=== PATIENT | female | born 1965 | race Caucasian/White ===

== ENCOUNTER 2017-07-12 19:30 | Emergency (ER) | payer OTHER ==
[2017-07-13 00:41] LABS: ADD MAN DIFF? NO
[2017-07-13] MEDS: LORAZEPAM 2 MG INJ IV (00:44)
[2017-07-13 00:45] LABS: WHITE BLOOD COUNT 10.6 10^3/ul (4.8-10.8)
[2017-07-13 00:45] LABS: BASOPHILS % 0.2 % (0.0-2.0); EOSINOPHILS % 0.1 % (0.0-7.0); HEMATOCRIT 34.1 % (37.0-47.0); HEMOGLOBIN 11.2 g/dl (12.0-16.0); LYMPHOCYTES # 1.6 10^3/ul (0.8-2.9); LYMPHOCYTES % 14.9 % (15.0-51.0); MEAN CORPUSCULAR HEMOGLOBIN 27.1 pg (29.0-33.0); MEAN CORPUSCULAR HGB CONC 32.8 g/dl (32.0-37.0); MEAN CORPUSCULAR VOLUME 82.6 fl (82.0-101.0); MEAN PLATELET VOLUME 10.3 fl (7.4-10.4); MONOCYTE # 0.3 10^3/ul (0.3-0.9); MONOCYTES % 2.4 % (0.0-11.0); NEUTROPHIL # 8.6 10^3/ul (1.6-7.5); NEUTROPHILS % 81.2 % (39.0-77.0); PLATELET COUNT 353 10^3/UL (140-415); RED BLOOD COUNT 4.13 10^6/ul (4.20-5.40); RED CELL DISTRIBUTION WIDTH 14.6 % (11.5-14.5)
[2017-07-13 01:15] LABS: ALANINE AMINOTRANSFERASE 25 IU/L (13-69); ALBUMIN 4.6 g/dl (3.3-4.9); ALBUMIN/GLOBULIN RATIO 1.17; ALKALINE PHOSPHATASE 133 IU/L (42-121); ANION GAP 16 (8-16); ASPARTATE AMINO TRANSFERASE 29 IU/L (15-46); BLOOD UREA NITROGEN 15 mg/dl (7-20); CALCIUM 10.1 mg/dl (8.4-10.2); CARBON DIOXIDE 23 mmol/L (21-31); CHLORIDE 105 mmol/L (97-110); CREATINE KINASE 115 IU/L (23-200); CREATININE 0.57 mg/dl (0.44-1.00); GLUCOSE 191 mg/dl (70-220); POTASSIUM 4.1 mmol/L (3.5-5.1); SODIUM 140 mmol/L (135-144); TOTAL PROTEIN 8.5 g/dl (6.1-8.1)
[2017-07-13 02:37] LABS: B-TYPE NATRIURETIC PEPTIDE 66 PG/ML (0-125); CK INDEX 0.8; CK-MB 0.87 ng/ml (0.0-2.4)
[2017-07-13 02:46] LABS: TROPONIN-I < 0.012 ng/ml (0.00-0.12)
== END 2017-07-13 03:28 | disposition home or self-care (01) ==
LOC: E/R 19:30
DX: R07.9 Chest pain, unspecified (principal); J45.909 Unspecified asthma, uncomplicated; E11.9 Type 2 diabetes mellitus without complications; R06.02 Shortness of breath; Z79.82 Long term (current) use of aspirin; Z79.84 Long term (current) use of oral hypoglycemic drugs
CPT/HCPCS: 36415; 71045; 80053; 82550; 82553; 82962; 83880; 84484; 85025; 93005; 96374; 99285-25

== ENCOUNTER 2017-08-24 01:07 | Inpatient (IN) | payer OTHER ==
[2017-08-24 02:27] LABS: ADD MAN DIFF? NO
[2017-08-24] MEDS: hydrALAzine 20 MG INJ IV (02:30)
[2017-08-24 02:31] LABS: BASOPHILS % 0.4 % (0.0-2.0); EOSINOPHILS # 0.3 10^3/ul (0.0-0.5); EOSINOPHILS % 3.6 % (0.0-7.0); HEMATOCRIT 38.7 % (37.0-47.0); HEMOGLOBIN 12.3 g/dl (12.0-16.0); LYMPHOCYTES % 33.5 % (15.0-51.0); MEAN CORPUSCULAR HGB CONC 31.8 g/dl (32.0-37.0); MEAN CORPUSCULAR VOLUME 84.9 fl (82.0-101.0); MEAN PLATELET VOLUME 10.2 fl (7.4-10.4); MONOCYTE # 0.5 10^3/ul (0.3-0.9); NEUTROPHIL # 5.1 10^3/ul (1.6-7.5); NEUTROPHILS % 56.2 % (39.0-77.0); PLATELET COUNT 352 10^3/UL (140-415); RED BLOOD COUNT 4.56 10^6/ul (4.20-5.40); RED CELL DISTRIBUTION WIDTH 15.1 % (11.5-14.5)
[2017-08-24 02:53] LABS: ALANINE AMINOTRANSFERASE 25 IU/L (13-69); ALBUMIN 4.7 g/dl (3.3-4.9); ALKALINE PHOSPHATASE 144 IU/L (42-121); ANION GAP 16 (8-16); ASPARTATE AMINO TRANSFERASE 22 IU/L (15-46); BLOOD UREA NITROGEN 18 mg/dl (7-20); CALCIUM 9.8 mg/dl (8.4-10.2); CARBON DIOXIDE 29 mmol/L (21-31); CHLORIDE 102 mmol/L (97-110); CREATININE 0.66 mg/dl (0.44-1.00); GLUCOSE 85 mg/dl (70-220); POTASSIUM 3.8 mmol/L (3.5-5.1); SODIUM 143 mmol/L (135-144); TOTAL PROTEIN 8.3 g/dl (6.1-8.1)
[2017-08-24 03:05] LABS: B-TYPE NATRIURETIC PEPTIDE 26 PG/ML (0-125)
[2017-08-24 03:09] LABS: TROPONIN-I < 0.012 ng/ml (0.00-0.12)
[2017-08-24 07:35] LABS: CREATINE KINASE 83 IU/L (23-200)
[2017-08-24 07:47] LABS: CK INDEX 0.8; TROPONIN-I < 0.012 ng/ml (0.00-0.12)
[2017-08-24] MEDS ORDERED: ALBUTEROL HFA 8 GM INHALER INH (08:30)
[2017-08-24] MEDS ORDERED: NITROGLYCERIN (SL) 0.4 MG TAB SL (08:30)
[2017-08-24] MEDS ORDERED: GLUCOSE GEL 15 GRAM TUBE BUCCAL (08:30)
[2017-08-24] MEDS ORDERED: GLUCOSE GEL 15 GRAM TUBE PO ×2 (08:30)
[2017-08-24] MEDS ORDERED: GLUCAGON 1 MG INJ IM (08:30)
[2017-08-24] MEDS ORDERED: DEXTROSE 50% 50 ML SYRINGE IV ×2 (08:30)
[2017-08-24] MEDS: ASPIRIN 325 MG TAB PO (09:58)
[2017-08-24] MEDS: METOPROLOL 25 MG TAB PO ×2 (09:59→20:55)
[2017-08-24] MEDS: RANITIDINE 150 MG TAB PO ×2 (09:59→20:55)
[2017-08-24] MEDS: BENAZEPRIL 40 MG TAB PO (09:59)
[2017-08-24] MEDS: ACETAMINOPHEN 325 MG TAB PO (10:41)
[2017-08-24] MEDS: INSULIN ASPART [NOVOLOG] 3 ML PEN SC ×3 (11:45→20:58)
[2017-08-24 12:58] LABS: CREATINE KINASE 73 IU/L (23-200)
[2017-08-24 13:11] LABS: CK INDEX 0.7; CK-MB 0.49 ng/ml (0.0-2.4); TROPONIN-I < 0.012 ng/ml (0.00-0.12)
[2017-08-24] MEDS ORDERED: hydrALAzine 20 MG INJ IV (14:30)
[2017-08-24] MEDS: metFORMIN 500 MG TAB PO (17:06)
[2017-08-24 19:19] LABS: TROPONIN-I < 0.012 ng/ml (0.00-0.12)
[2017-08-25] MEDS: ACCU-CHEK XX (02:22)
[2017-08-25 05:16] LABS: ADD MAN DIFF? NO
[2017-08-25 05:20] LABS: WHITE BLOOD COUNT 7.6 10^3/ul (4.8-10.8)
[2017-08-25 05:20] LABS: BASOPHILS % 0.5 % (0.0-2.0); EOSINOPHILS # 0.3 10^3/ul (0.0-0.5); EOSINOPHILS % 3.7 % (0.0-7.0); HEMATOCRIT 37.7 % (37.0-47.0); HEMOGLOBIN 11.9 g/dl (12.0-16.0); LYMPHOCYTES # 2.7 10^3/ul (0.8-2.9); LYMPHOCYTES % 35.6 % (15.0-51.0); MEAN CORPUSCULAR HEMOGLOBIN 26.9 pg (29.0-33.0); MEAN CORPUSCULAR HGB CONC 31.6 g/dl (32.0-37.0); MEAN CORPUSCULAR VOLUME 85.3 fl (82.0-101.0); MEAN PLATELET VOLUME 10.1 fl (7.4-10.4); MONOCYTE # 0.5 10^3/ul (0.3-0.9); MONOCYTES % 6.2 % (0.0-11.0); NEUTROPHIL # 4.1 10^3/ul (1.6-7.5); NEUTROPHILS % 53.6 % (39.0-77.0); PLATELET COUNT 365 10^3/UL (140-415); RED BLOOD COUNT 4.42 10^6/ul (4.20-5.40); RED CELL DISTRIBUTION WIDTH 15.4 % (11.5-14.5)
[2017-08-25 05:46] LABS: ANION GAP 14 (8-16); BLOOD UREA NITROGEN 19 mg/dl (7-20); CALCIUM 9.3 mg/dl (8.4-10.2); CARBON DIOXIDE 28 mmol/L (21-31); CHLORIDE 104 mmol/L (97-110); CREATININE 0.77 mg/dl (0.44-1.00); GLUCOSE 111 mg/dl (70-220); POTASSIUM 4.4 mmol/L (3.5-5.1); SODIUM 142 mmol/L (135-144)
[2017-08-25 06:01] LABS: CHOL/HDL RATIO 6.5 RATIO; HDL CHOLESTEROL 36 mg/dl (37-92); LDL CHOLESTEROL,CALCULATED 166 mg/dl; TRIGLYCERIDES 160 mg/dl (0-149)
[2017-08-25 06:01] LABS: CHOLESTEROL 234 mg/dl (100-200)
[2017-08-25] MEDS: INSULIN ASPART [NOVOLOG] 3 ML PEN SC ×3 (07:35→17:14)
[2017-08-25] MEDS: metFORMIN 500 MG TAB PO ×2 (07:38→17:38)
[2017-08-25] MEDS: METOPROLOL 25 MG TAB PO (08:29)
[2017-08-25] MEDS: BENAZEPRIL 40 MG TAB PO (08:29)
[2017-08-25] MEDS: RANITIDINE 150 MG TAB PO (08:29)
[2017-08-25] MEDS: ASPIRIN 325 MG TAB PO (08:29)
[2017-08-25] MEDS: ACETAMINOPHEN 325 MG TAB PO (11:14)
== END 2017-08-25 18:40 | disposition home or self-care (01) | DRG 313 ==
LOC: E/R 01:07 → MS3 05:48
DX: R07.9 Chest pain, unspecified (principal); Z68.41 Body mass index [BMI] 40.0-44.9, adult; I10 Essential (primary) hypertension; E11.9 Type 2 diabetes mellitus without complications; E78.5 Hyperlipidemia, unspecified; E66.01 Morbid (severe) obesity due to excess calories
CPT/HCPCS: 36415; 71045; 80048; 80053; 80061; 82550; 82553; 82962; 83880; 84443; 84484; 85025; 93005; 93306; 96374; 99285-25

== ENCOUNTER 2017-08-27 00:13 | Emergency (ER) | payer SELFPAY, OTHER | END 2017-08-27 06:30 | disposition left against medical advice (07) | LOC: E/R 00:13 | DX: Z53.21 Procedure and treatment not carried out due to patient leaving prior to being seen by health care provider (principal) ==

== ENCOUNTER 2018-03-28 12:28 | Inpatient (IN) | payer OTHER ==
[2018-03-28] MEDS: SOD CHLORIDE 0.9% 1,000 ML IV (16:25)
[2018-03-28] MEDS: VANCOMYCIN 1 GM (PMX) 250 ML IVPB (16:26)
[2018-03-28 16:39] LABS: ADD MAN DIFF? NO
[2018-03-28 16:40] LABS: WHITE BLOOD COUNT 8.7 10^3/ul (4.8-10.8)
[2018-03-28 16:40] LABS: BASOPHIL # 0.1 10^3/ul (0.0-0.1); BASOPHILS % 0.6 % (0.0-2.0); EOSINOPHILS # 0.3 10^3/ul (0.0-0.5); EOSINOPHILS % 3.9 % (0.0-7.0); HEMATOCRIT 35.3 % (37.0-47.0); HEMOGLOBIN 10.8 g/dl (12.0-16.0); LYMPHOCYTES # 1.9 10^3/ul (0.8-2.9); LYMPHOCYTES % 21.9 % (15.0-51.0); MEAN CORPUSCULAR HEMOGLOBIN 25.7 pg (29.0-33.0); MEAN CORPUSCULAR HGB CONC 30.6 g/dl (32.0-37.0); MEAN CORPUSCULAR VOLUME 83.8 fl (82.0-101.0); MEAN PLATELET VOLUME 9.9 fl (7.4-10.4); MONOCYTE # 0.4 10^3/ul (0.3-0.9); MONOCYTES % 4.8 % (0.0-11.0); NEUTROPHILS % 68.6 % (39.0-77.0); PLATELET COUNT 399 10^3/UL (140-415); RED BLOOD COUNT 4.21 10^6/ul (4.20-5.40); RED CELL DISTRIBUTION WIDTH 14.7 % (11.5-14.5)
[2018-03-28 16:52] LABS: ADD UMIC NO; UR ASCORBIC ACID NEGATIVE (NEGATIVE); UR BILIRUBIN (Dip) NEGATIVE (NEGATIVE); UR BLOOD (Dip) NEGATIVE (NEGATIVE); UR CLARITY CLEAR (CLEAR); UR COLOR YELLOW (YELLOW); UR GLUCOSE (Dip) NEGATIVE (NEGATIVE); UR KETONES (Dip) NEGATIVE (NEGATIVE); UR LEUKOCYTE ESTERASE (Dip) NEGATIVE Leu/ul (NEGATIVE); UR NITRITE (Dip) NEGATIVE (NEGATIVE); UR SPECIFIC GRAVITY (Dip) 1.016 (1.003-1.030); UR TOTAL PROTEIN (Dip) NEGATIVE (NEGATIVE); UR UROBILINOGEN (Dip) NEGATIVE (NEGATIVE)
[2018-03-28 16:59] LABS: ALANINE AMINOTRANSFERASE 10 IU/L (13-69); ALBUMIN 4.2 g/dl (3.3-4.9); ALBUMIN/GLOBULIN RATIO 1.05; ALKALINE PHOSPHATASE 117 IU/L (42-121); ANION GAP 9 (5-13); ASPARTATE AMINO TRANSFERASE 20 IU/L (15-46); BILIRUBIN,INDIRECT 0.1 mg/dl (0-1.1); BILIRUBIN,TOTAL 0.1 mg/dl (0.2-1.3); BLOOD UREA NITROGEN 17 mg/dl (7-20); CALCIUM 9.4 mg/dl (8.4-10.2); CARBON DIOXIDE 28 mmol/L (21-31); CHLORIDE 103 mmol/L (97-110); Estimated GFR > 60 mL/min (>60); GLUCOSE 162 mg/dl (70-220); POTASSIUM 3.8 mmol/L (3.5-5.1); SODIUM 140 mmol/L (135-144); TOTAL PROTEIN 8.2 g/dl (6.1-8.1)
[2018-03-28] MEDS ORDERED: ACETAMINOPHEN 325 MG TAB PO (19:00)
[2018-03-28] MEDS ORDERED: ONDANSETRON 4 MG INJ IV (19:00)
[2018-03-28] MEDS ORDERED: ALBUTEROL HFA 8 GM INHALER INH (19:30)
[2018-03-28] MEDS ORDERED: NACL 0.9% 3 ML SYG IV (19:30)
[2018-03-28] MEDS ORDERED: VANCOMYCIN IV PER PHARMACY XX (20:00)
[2018-03-28] MEDS: INSULIN ASPART [NOVOLOG] 3 ML PEN SC (21:00)
[2018-03-28] MEDS: RANITIDINE 150 MG TAB PO (22:16)
[2018-03-28] MEDS: VANCOMYCIN 1 GM 250 ML IVPB (22:16)
[2018-03-28] MEDS: ACETAMINOPHEN 325 MG TAB PO (22:25)
[2018-03-29 06:06] LABS: ADD MAN DIFF? NO
[2018-03-29 06:10] LABS: WHITE BLOOD COUNT 6.6 10^3/ul (4.8-10.8)
[2018-03-29 06:10] LABS: BASOPHIL # 0.1 10^3/ul (0.0-0.1); BASOPHILS % 0.8 % (0.0-2.0); EOSINOPHILS # 0.4 10^3/ul (0.0-0.5); EOSINOPHILS % 5.3 % (0.0-7.0); HEMATOCRIT 32.3 % (37.0-47.0); HEMOGLOBIN 10.1 g/dl (12.0-16.0); LYMPHOCYTES # 1.8 10^3/ul (0.8-2.9); LYMPHOCYTES % 27.2 % (15.0-51.0); MEAN CORPUSCULAR HEMOGLOBIN 26.3 pg (29.0-33.0); MEAN CORPUSCULAR HGB CONC 31.3 g/dl (32.0-37.0); MEAN CORPUSCULAR VOLUME 84.1 fl (82.0-101.0); MONOCYTE # 0.5 10^3/ul (0.3-0.9); MONOCYTES % 7.7 % (0.0-11.0); NEUTROPHIL # 3.9 10^3/ul (1.6-7.5); NEUTROPHILS % 58.8 % (39.0-77.0); PLATELET COUNT 348 10^3/UL (140-415); RED BLOOD COUNT 3.84 10^6/ul (4.20-5.40); RED CELL DISTRIBUTION WIDTH 14.6 % (11.5-14.5)
[2018-03-29 06:47] LABS: ANION GAP 6 (5-13); BLOOD UREA NITROGEN 13 mg/dl (7-20); CALCIUM 8.8 mg/dl (8.4-10.2); CARBON DIOXIDE 29 mmol/L (21-31); CHLORIDE 107 mmol/L (97-110); Estimated GFR > 60 mL/min (>60); GLUCOSE 111 mg/dl (70-220); MAGNESIUM 2.1 mg/dl (1.7-2.5); POTASSIUM 4.2 mmol/L (3.5-5.1); SODIUM 142 mmol/L (135-144)
[2018-03-29] MEDS ORDERED: GLUCAGON 1 MG INJ IM (07:30)
[2018-03-29] MEDS ORDERED: DEXTROSE 50% 50 ML SYRINGE IV ×2 (07:30)
[2018-03-29] MEDS ORDERED: GLUCOSE GEL 15 GRAM TUBE PO (07:30)
[2018-03-29] MEDS: INSULIN ASPART [NOVOLOG] 3 ML PEN SC ×4 (08:46→21:00)
[2018-03-29] MEDS: ENOXAPARIN 40 MG/0.4 ML SYG SC (08:46)
[2018-03-29] MEDS: BENAZEPRIL 40 MG TAB PO (08:47)
[2018-03-29] MEDS: ASPIRIN 81 MG TAB PO (08:49)
[2018-03-29] MEDS: RANITIDINE 150 MG TAB PO ×2 (08:50→21:26)
[2018-03-29] MEDS: VANCOMYCIN 1 GM 250 ML IVPB ×2 (10:44→21:28)
[2018-03-29] MEDS: ACETAMINOPHEN 325 MG TAB PO ×2 (13:14→22:10)
[2018-03-29] MEDS: LEVOFLOXACIN 500MG/D5W (PMX) 100 ML IVPB (14:13)
[2018-03-29] MEDS: metFORMIN 500 MG TAB PO (17:39)
[2018-03-29] MEDS: glipiZIDE 10 MG TAB PO (17:39)
[2018-03-29] MEDS: GLUCOSE GEL 15 GRAM TUBE PO (21:16)
[2018-03-29] MEDS: GABAPENTIN 300 MG CAP PO (21:24)
[2018-03-30 06:13] LABS: ADD MAN DIFF? NO
[2018-03-30 06:18] LABS: BASOPHIL # 0.1 10^3/ul (0.0-0.1); BASOPHILS % 0.9 % (0.0-2.0); EOSINOPHILS # 0.3 10^3/ul (0.0-0.5); HEMATOCRIT 33.4 % (37.0-47.0); HEMOGLOBIN 10.4 g/dl (12.0-16.0); LYMPHOCYTES # 2.2 10^3/ul (0.8-2.9); LYMPHOCYTES % 34.5 % (15.0-51.0); MEAN CORPUSCULAR HEMOGLOBIN 26.3 pg (29.0-33.0); MEAN CORPUSCULAR HGB CONC 31.1 g/dl (32.0-37.0); MEAN CORPUSCULAR VOLUME 84.3 fl (82.0-101.0); MEAN PLATELET VOLUME 10.2 fl (7.4-10.4); MONOCYTE # 0.5 10^3/ul (0.3-0.9); MONOCYTES % 8.5 % (0.0-11.0); NEUTROPHIL # 3.2 10^3/ul (1.6-7.5); NEUTROPHILS % 50.8 % (39.0-77.0); PLATELET COUNT 372 10^3/UL (140-415); RED BLOOD COUNT 3.96 10^6/ul (4.20-5.40); RED CELL DISTRIBUTION WIDTH 14.6 % (11.5-14.5)
[2018-03-30 06:18] LABS: WHITE BLOOD COUNT 6.4 10^3/ul (4.8-10.8)
[2018-03-30 06:44] LABS: ANION GAP 7 (5-13); BLOOD UREA NITROGEN 12 mg/dl (7-20); CALCIUM 9.1 mg/dl (8.4-10.2); CARBON DIOXIDE 30 mmol/L (21-31); CHLORIDE 106 mmol/L (97-110); CREATININE 0.56 mg/dl (0.44-1.00); Estimated GFR > 60 mL/min (>60); GLUCOSE 95 mg/dl (70-220); POTASSIUM 3.9 mmol/L (3.5-5.1); SODIUM 143 mmol/L (135-144)
[2018-03-30] MEDS: INSULIN ASPART [NOVOLOG] 3 ML PEN SC ×4 (08:00→21:00)
[2018-03-30] MEDS: metFORMIN 500 MG TAB PO ×2 (08:02→17:58)
[2018-03-30] MEDS: glipiZIDE 10 MG TAB PO ×2 (08:02→17:58)
[2018-03-30] MEDS: ACETAMINOPHEN 325 MG TAB PO ×2 (08:08→22:46)
[2018-03-30] MEDS: ASPIRIN 81 MG TAB PO (08:51)
[2018-03-30] MEDS: GABAPENTIN 300 MG CAP PO ×3 (08:51→21:08)
[2018-03-30] MEDS: BENAZEPRIL 40 MG TAB PO (08:51)
[2018-03-30] MEDS: RANITIDINE 150 MG TAB PO ×2 (08:52→21:16)
[2018-03-30] MEDS: LOSARTAN 50 MG TAB PO (08:53)
[2018-03-30] MEDS: ENOXAPARIN 40 MG/0.4 ML SYG SC (08:54)
[2018-03-30 10:19] LABS: VANCOMYCIN,TROUGH 8.6 ug/ml (10.0-20.0)
[2018-03-30] MEDS: VANCOMYCIN 1 GM 250 ML IVPB (11:09)
[2018-03-30] MEDS: LEVOFLOXACIN 500MG/D5W (PMX) 100 ML IVPB (15:11)
[2018-03-30] MEDS: GLUCOSE GEL 15 GRAM TUBE BUCCAL (21:15)
[2018-03-30] MEDS: VANCOMYCIN 1.25 GM in SOD CHLORIDE 0.9% 250 ML IVPB (22:25)
[2018-03-31 06:09] LABS: ANION GAP 8 (5-13); BLOOD UREA NITROGEN 17 mg/dl (7-20); CALCIUM 9.3 mg/dl (8.4-10.2); CARBON DIOXIDE 30 mmol/L (21-31); CHLORIDE 104 mmol/L (97-110); CREATININE 0.65 mg/dl (0.44-1.00); Estimated GFR > 60 mL/min (>60); GLUCOSE 93 mg/dl (70-220); POTASSIUM 3.9 mmol/L (3.5-5.1); SODIUM 142 mmol/L (135-144)
[2018-03-31] MEDS: glipiZIDE 10 MG TAB PO ×2 (07:56→17:35)
[2018-03-31] MEDS: INSULIN ASPART [NOVOLOG] 3 ML PEN SC ×4 (08:00→21:00)
[2018-03-31] MEDS: ASPIRIN 81 MG TAB PO (08:30)
[2018-03-31] MEDS: RANITIDINE 150 MG TAB PO ×2 (08:31→20:21)
[2018-03-31] MEDS: GABAPENTIN 300 MG CAP PO ×3 (08:31→20:21)
[2018-03-31] MEDS: ENOXAPARIN 40 MG/0.4 ML SYG SC (08:33)
[2018-03-31] MEDS: metFORMIN 500 MG TAB PO ×2 (08:37→18:05)
[2018-03-31] MEDS: VANCOMYCIN 1.25 GM in SOD CHLORIDE 0.9% 250 ML IVPB ×2 (11:23→22:03)
[2018-03-31] MEDS: BENAZEPRIL 40 MG TAB PO (11:37)
[2018-03-31] MEDS: LOSARTAN 50 MG TAB PO (11:38)
[2018-03-31] MEDS: LEVOFLOXACIN 500MG/D5W (PMX) 100 ML IVPB (14:07)
[2018-04-01] MEDS: ACETAMINOPHEN 325 MG TAB PO ×2 (02:56→11:18)
[2018-04-01] MEDS: INSULIN ASPART [NOVOLOG] 3 ML PEN SC ×4 (08:00→21:00)
[2018-04-01] MEDS: ASPIRIN 81 MG TAB PO (08:46)
[2018-04-01] MEDS: GABAPENTIN 300 MG CAP PO ×3 (08:46→21:14)
[2018-04-01] MEDS: glipiZIDE 10 MG TAB PO ×2 (08:46→18:12)
[2018-04-01] MEDS: RANITIDINE 150 MG TAB PO ×2 (08:46→21:14)
[2018-04-01] MEDS: metFORMIN 500 MG TAB PO ×2 (08:46→18:13)
[2018-04-01] MEDS: ENOXAPARIN 40 MG/0.4 ML SYG SC (08:47)
[2018-04-01] MEDS: LOSARTAN 50 MG TAB PO (08:50)
[2018-04-01] MEDS: BENAZEPRIL 40 MG TAB PO (08:50)
[2018-04-01] MEDS: DOCUSATE SODIUM 100 MG CAP PO (08:55)
[2018-04-01] MEDS: VANCOMYCIN 1.25 GM in SOD CHLORIDE 0.9% 250 ML IVPB ×2 (11:11→21:16)
[2018-04-01] MEDS: LEVOFLOXACIN 500MG/D5W (PMX) 100 ML IVPB (13:52)
[2018-04-02 05:26] LABS: ADD MAN DIFF? NO; BASOPHIL # 0.1 10^3/ul (0.0-0.1); BASOPHILS % 0.9 % (0.0-2.0); EOSINOPHILS # 0.3 10^3/ul (0.0-0.5); EOSINOPHILS % 4.2 % (0.0-7.0); HEMOGLOBIN 9.9 g/dl (12.0-16.0); LYMPHOCYTES # 2.6 10^3/ul (0.8-2.9); LYMPHOCYTES % 34.4 % (15.0-51.0); MEAN CORPUSCULAR HEMOGLOBIN 25.9 pg (29.0-33.0); MEAN CORPUSCULAR HGB CONC 30.9 g/dl (32.0-37.0); MEAN CORPUSCULAR VOLUME 83.8 fl (82.0-101.0); MONOCYTE # 0.6 10^3/ul (0.3-0.9); MONOCYTES % 7.4 % (0.0-11.0); NEUTROPHILS % 52.7 % (39.0-77.0); PLATELET COUNT 382 10^3/UL (140-415); RED BLOOD COUNT 3.82 10^6/ul (4.20-5.40); RED CELL DISTRIBUTION WIDTH 14.8 % (11.5-14.5)
[2018-04-02 05:26] LABS: WHITE BLOOD COUNT 7.6 10^3/ul (4.8-10.8)
[2018-04-02 06:13] LABS: ANION GAP 8 (5-13); BLOOD UREA NITROGEN 20 mg/dl (7-20); CALCIUM 9.1 mg/dl (8.4-10.2); CARBON DIOXIDE 30 mmol/L (21-31); CHLORIDE 104 mmol/L (97-110); CREATININE 0.71 mg/dl (0.44-1.00); Estimated GFR > 60 mL/min (>60); GLUCOSE 97 mg/dl (70-220); POTASSIUM 4.1 mmol/L (3.5-5.1); SODIUM 142 mmol/L (135-144)
[2018-04-02] MEDS: INSULIN ASPART [NOVOLOG] 3 ML PEN SC ×4 (08:00→21:00)
[2018-04-02] MEDS: metFORMIN 500 MG TAB PO ×2 (08:17→19:08)
[2018-04-02] MEDS: glipiZIDE 10 MG TAB PO (08:18)
[2018-04-02] MEDS: BENAZEPRIL 40 MG TAB PO (08:18)
[2018-04-02] MEDS: GABAPENTIN 300 MG CAP PO ×3 (08:18→20:59)
[2018-04-02] MEDS: RANITIDINE 150 MG TAB PO ×2 (08:18→20:59)
[2018-04-02] MEDS: ASPIRIN 81 MG TAB PO (08:18)
[2018-04-02] MEDS: LOSARTAN 50 MG TAB PO (08:20)
[2018-04-02] MEDS: ENOXAPARIN 40 MG/0.4 ML SYG SC (08:39)
[2018-04-02] MEDS: VANCOMYCIN 1.25 GM in SOD CHLORIDE 0.9% 250 ML IVPB ×2 (11:35→22:25)
[2018-04-02] MEDS: RIFAMPIN 300 MG CAP PO (13:31)
[2018-04-02] MEDS ORDERED: SILVER SULFADIAZINE 1% 400 GM CR TOP (14:30)
[2018-04-02] MEDS: SILVER SULFADIAZINE 1% 25 GM CR TOP (15:22)
[2018-04-02] MEDS: DOCUSATE SODIUM 100 MG CAP PO (16:58)
[2018-04-02] MEDS: ACETAMINOPHEN 325 MG TAB PO (19:00)
[2018-04-03] MEDS: glipiZIDE 10 MG TAB PO (07:30)
[2018-04-03] MEDS: INSULIN ASPART [NOVOLOG] 3 ML PEN SC ×4 (08:00→20:24)
[2018-04-03] MEDS: ENOXAPARIN 40 MG/0.4 ML SYG SC (08:02)
[2018-04-03] MEDS: GABAPENTIN 300 MG CAP PO ×3 (08:03→20:13)
[2018-04-03] MEDS: ACETAMINOPHEN 325 MG TAB PO (08:03)
[2018-04-03] MEDS: BENAZEPRIL 40 MG TAB PO (08:03)
[2018-04-03] MEDS: RIFAMPIN 300 MG CAP PO (08:03)
[2018-04-03] MEDS: ASPIRIN 81 MG TAB PO (08:03)
[2018-04-03] MEDS: metFORMIN 500 MG TAB PO ×2 (08:04→17:12)
[2018-04-03] MEDS: RANITIDINE 150 MG TAB PO ×2 (08:04→20:14)
[2018-04-03] MEDS: LOSARTAN 50 MG TAB PO (08:04)
[2018-04-03] MEDS: SILVER SULFADIAZINE 1% 25 GM CR TOP ×2 (08:15→20:22)
[2018-04-03] MEDS: ONDANSETRON 4 MG INJ IV ×2 (09:50→17:14)
[2018-04-03] MEDS: VANCOMYCIN 1.25 GM in SOD CHLORIDE 0.9% 250 ML IVPB ×2 (10:56→22:47)
[2018-04-03] MEDS: MAGNESIUM HYDROXIDE 30ML CUP PO (20:14)
[2018-04-04] MEDS: glipiZIDE 10 MG TAB PO ×2 (07:30→08:12)
[2018-04-04] MEDS: INSULIN ASPART [NOVOLOG] 3 ML PEN SC ×4 (08:00→21:00)
[2018-04-04] MEDS: RIFAMPIN 300 MG CAP PO (08:08)
[2018-04-04] MEDS: RANITIDINE 150 MG TAB PO ×2 (08:08→20:56)
[2018-04-04] MEDS: ASPIRIN 81 MG TAB PO (08:09)
[2018-04-04] MEDS: LOSARTAN 50 MG TAB PO (08:09)
[2018-04-04] MEDS: GABAPENTIN 300 MG CAP PO ×3 (08:10→20:56)
[2018-04-04] MEDS: ENOXAPARIN 40 MG/0.4 ML SYG SC (08:11)
[2018-04-04] MEDS: SILVER SULFADIAZINE 1% 25 GM CR TOP ×2 (08:11→20:56)
[2018-04-04] MEDS: metFORMIN 500 MG TAB PO ×2 (08:13→18:19)
[2018-04-04] MEDS: BENAZEPRIL 40 MG TAB PO (08:16)
[2018-04-04] MEDS: ONDANSETRON 4 MG INJ IV (08:30)
[2018-04-04] MEDS: VANCOMYCIN 1.25 GM in SOD CHLORIDE 0.9% 250 ML IVPB ×2 (10:08→22:14)
[2018-04-05] MEDS: LORATADINE 10 MG TAB PO (00:24)
[2018-04-05 07:22] LABS: ADD MAN DIFF? NO; BASOPHILS % 0.7 % (0.0-2.0); EOSINOPHILS # 0.3 10^3/ul (0.0-0.5); EOSINOPHILS % 5.3 % (0.0-7.0); HEMOGLOBIN 10.3 g/dl (12.0-16.0); LYMPHOCYTES # 2.1 10^3/ul (0.8-2.9); LYMPHOCYTES % 33.8 % (15.0-51.0); MEAN CORPUSCULAR HEMOGLOBIN 26.1 pg (29.0-33.0); MEAN CORPUSCULAR HGB CONC 31.2 g/dl (32.0-37.0); MEAN CORPUSCULAR VOLUME 83.5 fl (82.0-101.0); MEAN PLATELET VOLUME 9.9 fl (7.4-10.4); MONOCYTE # 0.5 10^3/ul (0.3-0.9); MONOCYTES % 8.7 % (0.0-11.0); NEUTROPHIL # 3.1 10^3/ul (1.6-7.5); NEUTROPHILS % 51.2 % (39.0-77.0); PLATELET COUNT 350 10^3/UL (140-415); RED BLOOD COUNT 3.95 10^6/ul (4.20-5.40)
[2018-04-05 07:22] LABS: WHITE BLOOD COUNT 6.1 10^3/ul (4.8-10.8)
[2018-04-05] MEDS: INSULIN ASPART [NOVOLOG] 3 ML PEN SC ×4 (08:00→20:41)
[2018-04-05 08:02] LABS: ANION GAP 7 (5-13); BLOOD UREA NITROGEN 13 mg/dl (7-20); CALCIUM 9.1 mg/dl (8.4-10.2); CARBON DIOXIDE 30 mmol/L (21-31); CHLORIDE 104 mmol/L (97-110); CREATININE 0.61 mg/dl (0.44-1.00); Estimated GFR > 60 mL/min (>60); GLUCOSE 93 mg/dl (70-220); POTASSIUM 4.3 mmol/L (3.5-5.1); SODIUM 141 mmol/L (135-144)
[2018-04-05] MEDS: glipiZIDE 10 MG TAB PO (08:36)
[2018-04-05] MEDS: metFORMIN 500 MG TAB PO ×2 (08:36→17:56)
[2018-04-05] MEDS: ASPIRIN 81 MG TAB PO (08:36)
[2018-04-05] MEDS: BENAZEPRIL 40 MG TAB PO (08:37)
[2018-04-05] MEDS: RANITIDINE 150 MG TAB PO ×2 (08:37→20:36)
[2018-04-05] MEDS: LOSARTAN 50 MG TAB PO (08:37)
[2018-04-05] MEDS: RIFAMPIN 300 MG CAP PO (08:37)
[2018-04-05] MEDS: GABAPENTIN 300 MG CAP PO ×3 (08:37→20:36)
[2018-04-05] MEDS: SILVER SULFADIAZINE 1% 25 GM CR TOP ×2 (08:38→20:39)
[2018-04-05] MEDS: ENOXAPARIN 40 MG/0.4 ML SYG SC (08:40)
[2018-04-05] MEDS: ONDANSETRON 4 MG INJ IV (08:58)
[2018-04-05] MEDS: VANCOMYCIN 1.25 GM in SOD CHLORIDE 0.9% 250 ML IVPB ×2 (10:29→22:53)
[2018-04-05] MEDS: GLUCOSE GEL 15 GRAM TUBE BUCCAL (12:58)
[2018-04-06] MEDS: glipiZIDE 10 MG TAB PO ×2 (07:30→07:51)
[2018-04-06] MEDS: INSULIN ASPART [NOVOLOG] 3 ML PEN SC ×4 (07:50→20:43)
[2018-04-06] MEDS: metFORMIN 500 MG TAB PO ×2 (07:52→17:17)
[2018-04-06] MEDS: ASPIRIN 81 MG TAB PO (08:11)
[2018-04-06] MEDS: RANITIDINE 150 MG TAB PO ×2 (08:11→20:45)
[2018-04-06] MEDS: RIFAMPIN 300 MG CAP PO (08:12)
[2018-04-06] MEDS: ENOXAPARIN 40 MG/0.4 ML SYG SC (08:12)
[2018-04-06] MEDS: LOSARTAN 50 MG TAB PO (08:13)
[2018-04-06] MEDS: GABAPENTIN 300 MG CAP PO ×3 (08:13→20:45)
[2018-04-06] MEDS: BENAZEPRIL 40 MG TAB PO (08:13)
[2018-04-06] MEDS: SILVER SULFADIAZINE 1% 25 GM CR TOP ×2 (08:14→20:49)
[2018-04-06] MEDS: ONDANSETRON 4 MG INJ IV (08:22)
[2018-04-06] MEDS: VANCOMYCIN 1.25 GM in SOD CHLORIDE 0.9% 250 ML IVPB ×2 (09:55→22:25)
[2018-04-06] MEDS: ACETAMINOPHEN 325 MG TAB PO (10:56)
[2018-04-06 21:31] LABS: VANCOMYCIN,TROUGH 13.5 ug/ml (10.0-20.0)
[2018-04-07 05:15] LABS: ADD MAN DIFF? NO
[2018-04-07 05:18] LABS: BASOPHIL # 0.1 10^3/ul (0.0-0.1); BASOPHILS % 1.2 % (0.0-2.0); EOSINOPHILS # 0.3 10^3/ul (0.0-0.5); EOSINOPHILS % 4.9 % (0.0-7.0); HEMATOCRIT 31.7 % (37.0-47.0); HEMOGLOBIN 9.9 g/dl (12.0-16.0); LYMPHOCYTES # 2.3 10^3/ul (0.8-2.9); LYMPHOCYTES % 33.9 % (15.0-51.0); MEAN CORPUSCULAR HEMOGLOBIN 25.9 pg (29.0-33.0); MEAN CORPUSCULAR HGB CONC 31.2 g/dl (32.0-37.0); MEAN PLATELET VOLUME 9.7 fl (7.4-10.4); MONOCYTE # 0.6 10^3/ul (0.3-0.9); MONOCYTES % 8.4 % (0.0-11.0); NEUTROPHIL # 3.5 10^3/ul (1.6-7.5); NEUTROPHILS % 51.3 % (39.0-77.0); PLATELET COUNT 337 10^3/UL (140-415); RED BLOOD COUNT 3.82 10^6/ul (4.20-5.40); RED CELL DISTRIBUTION WIDTH 15.3 % (11.5-14.5)
[2018-04-07 05:18] LABS: WHITE BLOOD COUNT 6.8 10^3/ul (4.8-10.8)
[2018-04-07 05:44] LABS: ANION GAP 8 (5-13); BLOOD UREA NITROGEN 16 mg/dl (7-20); CARBON DIOXIDE 29 mmol/L (21-31); CHLORIDE 106 mmol/L (97-110); CREATININE 0.65 mg/dl (0.44-1.00); Estimated GFR > 60 mL/min (>60); GLUCOSE 107 mg/dl (70-220); SODIUM 143 mmol/L (135-144)
[2018-04-07] MEDS: INSULIN ASPART [NOVOLOG] 3 ML PEN SC ×2 (08:00→12:00)
[2018-04-07] MEDS: glipiZIDE 10 MG TAB PO (08:13)
[2018-04-07] MEDS: ENOXAPARIN 40 MG/0.4 ML SYG SC (08:14)
[2018-04-07] MEDS: ASPIRIN 81 MG TAB PO (08:16)
[2018-04-07] MEDS: metFORMIN 500 MG TAB PO (08:16)
[2018-04-07] MEDS: GABAPENTIN 300 MG CAP PO ×2 (08:20→12:43)
[2018-04-07] MEDS: LOSARTAN 50 MG TAB PO (08:20)
[2018-04-07] MEDS: RIFAMPIN 300 MG CAP PO (08:20)
[2018-04-07] MEDS: BENAZEPRIL 40 MG TAB PO (08:20)
[2018-04-07] MEDS: RANITIDINE 150 MG TAB PO (08:21)
[2018-04-07] MEDS: ONDANSETRON 4 MG INJ IV (08:26)
[2018-04-07] MEDS: VANCOMYCIN 1.25 GM in SOD CHLORIDE 0.9% 250 ML IVPB (11:08)
[2018-04-07] MEDS: SILVER SULFADIAZINE 1% 25 GM CR TOP (11:14)
[2018-04-07] MEDS ORDERED: TRIMETHOPRIM/SULFAMETHOX (DS) TAB PO (21:00)
== END 2018-04-07 18:55 | disposition home or self-care (01) | DRG 603 ==
LOC: FTE 12:28 → PP2 03-29 15:07
PROC: 0HBAXZZ Excision of Inguinal Skin, External Approach (ICD-10-PCS; principal; 2018-04-05)
DX: L03.314 Cellulitis of groin (principal); Z68.41 Body mass index [BMI] 40.0-44.9, adult; E66.01 Morbid (severe) obesity due to excess calories; B95.62 Methicillin resistant Staphylococcus aureus infection as the cause of diseases classified elsewhere; E11.40 Type 2 diabetes mellitus with diabetic neuropathy, unspecified; I10 Essential (primary) hypertension; E78.5 Hyperlipidemia, unspecified; Z71.3 Dietary counseling and surveillance; Z79.84 Long term (current) use of oral hypoglycemic drugs; Z79.82 Long term (current) use of aspirin
CPT/HCPCS: 36415; 76536; 80048; 80053; 80202; 81003; 82962; 83036; 83735; 85025; 87070; 87081; 88304; 96361; 96374; 99285-25